=== PATIENT | female | born 1995 | race American Indian/Alaskan Native ===

== ENCOUNTER 2018-05-04 14:29 | Outpatient (CLI) | payer MEDICAID ==
--- NOTE | 2018-05-04 19:58 | Event Note ---
Date: 05/04/18 no change in SVE after ambulating x 1 hour, SVE by my exam /-2, IBOW and no bleeding/spotting/leaking. Offered patient PO vistaril for rest, patient declined. plan to d/c home with labor precautions after reactive tracing. triage nurse aware.
[2018-05-06 08:50] VITALS: BP 105/67
== END 2018-05-04 23:41 | disposition home or self-care (01) ==
LOC: TRG 14:29 → LD 14:30 → TRG 23:41
PROVIDERS: ATTEND Obstetrics & Gynecology
DX: O47.1 False labor at or after 37 completed weeks of gestation (principal); Z3A.38 38 weeks gestation of pregnancy; Z91.040 Latex allergy status; Z91.013 Allergy to seafood
CPT/HCPCS: 59025

== ENCOUNTER 2018-05-05 18:02 | Inpatient (IN) | payer MEDICAID ==
[2018-05-05] MEDS ORDERED: LACTATED RINGERS 1,000 ML ONE (19:23)
[2018-05-05] MEDS ORDERED: PHENERGAN PO PRN (19:37)
[2018-05-05] MEDS ORDERED: MINERAL OIL PO PRN (19:37)
[2018-05-05] MEDS ORDERED: XYLOCAINE 2% INFILTRATI ONE (19:37)
[2018-05-05] MEDS ORDERED: STADOL IV PRN (19:37)
[2018-05-05] MEDS ORDERED: BRETHINE IVP PRN (19:37)
--- NOTE | 2018-05-05 19:53 | History and Physical Report ---
History of Present Illness Date of examination: 05/05/18 Date of admission: 05/05/18 18:02 History of present illness: Patient presented to labor and delivery from the office when she was seen with advanced dilatation and no being admitted for antibiotic prophylaxis due to positive group B streptococcus. Patient's cervix was 5-6 cm in office with irregular contractions Past History Past Medical History: no pertinent history Past Surgical History: no surgical history - Obstetrical History Expected Date of Delivery: 05/16/18 Actual Gestation: 38 Week(s) 3 Day(s) : 2 Para: 1 Hx # Term Pregnancies: 1 Number of Pregnancies: 0 Spontaneous Abortions: 0 Induced : 0 Number of Living Children: 1 Medications and Allergies Allergies Allergy/AdvReac Type Severity Reaction Status Date / Time latex AdvReac Swelling Verified 05/04/18 15:05 shellfish derived AdvReac Anaphylaxis Verified 05/04/18 15:05 Home Medications Medication Instructions Recorded Confirmed Last Taken Type Ferrous Sulfate [Feosol 325 MG tab] 1 tab PO QDAY 05/04/18 05/05/18 2 Weeks Ago History ~04/21/18 Pnv,Calcium 72/Iron/Folic Acid 1 tab PO QDAY 05/04/18 05/05/18 05/03/18 11:00 History [Pnv Plus Multivit Tab] Active Meds: Active Medications Butorphanol Tartrate (Stadol) 2 mg IV Q2H PRN PRN Reason: Pain , Severe (7-10) Ephedrine Sulfate (Ephedrine Sulfate) 10 mg IV Q2M PRN PRN Reason: Hypotension Ampicillin Sodium (Ampicillin/Ns 1 Gm/50 Ml) 1 gm in 50 mls @ 100 mls/hr IV Q4HR IMAN; Protocol Lactated Ringer's (Lactated Ringers) 1,000 mls @ 125 mls/hr IV DIRECT IMAN Oxytocin/Sodium Chloride (Pitocin/Ns 20 Unit/1000ml Drip) 20 units in 1,000 mls @ 125 mls/hr IV DIRECT IMAN Lidocaine (Xylocaine 2%) 20 ml INFILTRATI ONCE ONE Stop: 05/05/18 19:38 Mineral Oil (Mineral Oil) 30 ml PO QHS PRN PRN Reason: Constipation Promethazine HCl (Phenergan) 25 mg PO Q6H PRN PRN Reason: Nausea And Vomiting Terbutaline Sulfate (Brethine) 0.25 mg IVP ONCE PRN PRN Reason: Hyperstimulation/Hypertonicity - Vital Signs Vital signs: Vital Signs Pulse BP 87 118/73 05/05/18 19:36 05/05/18 19:36 Temp Pulse Resp BP Pulse Ox 87 118/73 05/05/18 19:36 05/05/18 19:36 - Physical Exam Breasts: Positive: deferred Cardiovascular: Regular rate Abdomen: Positive: normal appearance, soft Cervix: Positive: other (Per RN) Uterus: Positive: enlarged Anus/Rectum: Positive: normal perianal skin Extremities: Positive: edema Results Result Diagrams: 05/05/18 20:15 All other labs normal. Assessment and Plan - Patient Problems (1) 38 weeks gestation of Current Visit: Yes Status: Acute (2) Carrier of group B Streptococcus Current Visit: Yes Status: Acute Plan to address problem: Antibiotic prophylaxis given (3) Abnormal dilatation of cervix before onset of labor Current Visit: Yes Status: Acute Plan to address problem: We'll admit for expectant management and possible augmentation of labor.
[2018-05-05] MEDS ORDERED: POLYCILLIN/NS 2 GM/100 ML 2 GM/100 ML BAG IV SCH (20:00)
[2018-05-05] MEDS ORDERED: PITOCin/NS 20 UNIT/1000ML DRIP 20 UNITS/1,000 ML BAG IV SCH (20:00)
[2018-05-05] MEDS: LACTATED RINGERS 1,000 ML IV SCH (20:30)
[2018-05-05 20:53] LABS: Hemoglobin 10.3 gm/dl (10.1-14.3); Mean Corpuscular HGB Conc 32 % (30-34); Mean Corpuscular Hemoglobin 25 pg (28-32); Mean Corpuscular Volume 78 fl (79-97); Platelet Count 216 K/mm3 (140-440); Red Blood Count 4.11 M/mm3 (3.65-5.03); Red Cell Distribution Width 18.5 % (13.2-15.2)
[2018-05-06] MEDS: AMPICILLIN/NS 1 GM/50 ML 1 GM/50 ML BAG IV SCH ×4 (00:19→12:58)
[2018-05-06] MEDS ORDERED: PITOCin/NS 30 UNIT/500ML 30 UNITS/500 ML BAG IV SCH (02:00)
[2018-05-06] MEDS: LACTATED RINGERS 1,000 ML IV SCH (06:17)
--- NOTE | 2018-05-06 08:13 | Progress Note ---
Assessment and Plan patient reports ctx becoming stronger, will continue pitocin titration for adequate labor. She declines epidural. continue IV antibiotics for + GBS. - Patient Problems (1) 38 weeks gestation of Current Visit: Yes Status: Acute (2) Abnormal dilatation of cervix before onset of labor Current Visit: Yes Status: Acute (3) Carrier of group B Streptococcus Current Visit: Yes Status: Acute Subjective - Subjective Date of service: 05/06/18 Principal diagnosis: IUP @ 38+4 weeks, advanced dilitation Patient reports: contractions, no loss of fluid, no vaginal bleeding Objective - Vital Signs Vital Signs: Vital Signs - 12hr 05/05/18 05/05/18 05/06/18 23:51 23:55 02:39 Temperature 98.9 F 98.5 F Pulse Rate 74 Respiratory 20 18 Rate Blood Pressure 114/61 - Exam Breasts: normal Cardiovascular: Regular rate Lungs: Clear to auscultation, Normal air movement Abdomen: Present: normal appearance, soft Vulva: both: normal Uterus: Present: normal FHR: auscultation normal, category 1 Uterine Contraction Monitor Mode: External Uterine Contraction Pattern: Irregular Uterine Tone Measurement Phase: Contraction Uterine Contraction Intensity: Mild Extremities: normal Deep Tendon Reflex Grade: Normal +2 - Labs Labs: Abnormal Labs 05/05/18 20:15 MCV 78 L MCH 25 L RDW 18.5 H Laboratory Results - last 24 hr 05/05/18 05/05/18 20:15 20:21 WBC 6.8 RBC 4.11 Hgb 10.3 Hct 32.0 MCV 78 L MCH 25 L MCHC 32 RDW 18.5 H Plt Count 216 Blood Type AB POSITIVE Antibody Screen Negative
--- NOTE | 2018-05-06 11:52 | Progress Note ---
Assessment and Plan Frequent mild ctx noted but no cervical change. Patient denies feeling pain. IUPC flushed by RN, pitocin cut in half and will start increasing again for adequate labor. Advised pt to try different position - LLP and RLP to help facilitate cardinal movements. - Patient Problems (1) 38 weeks gestation of Current Visit: Yes Status: Acute (2) Abnormal dilatation of cervix before onset of labor Current Visit: Yes Status: Acute (3) Carrier of group B Streptococcus Current Visit: Yes Status: Acute Subjective - Subjective Date of service: 05/06/18 Principal diagnosis: IUP @ 38+4 weeks, advanced dilitation, AROM Patient reports: loss of fluid, movement normal, contractions, no vaginal bleeding Objective - Vital Signs Vital Signs: Vital Signs - 12hr 05/05/18 05/05/18 05/06/18 23:51 23:55 02:39 Temperature 98.9 F 98.5 F Pulse Rate 74 Respiratory 20 18 Rate Blood Pressure 114/61 05/06/18 05/06/18 05/06/18 09:11 09:42 10:21 Temperature 98.1 F Pulse Rate 98 H 85 Respiratory 18 Rate Blood Pressure 101/64 109/68 05/06/18 05/06/18 10:51 11:21 Temperature Pulse Rate 88 92 H Respiratory Rate Blood Pressure 111/76 103/70 - Exam Breasts: normal Cardiovascular: Regular rate Lungs: Clear to auscultation, Normal air movement Abdomen: Present: normal appearance, soft Vulva: both: normal Uterus: Present: normal FHR: auscultation normal, category 1 Uterine Contraction Monitor Mode: Internal Cervical Dilatation: 6 Cervical Effacement Percentage: 70 station: 0 Uterine Contraction Frequency (min): 1-2 Uterine Contraction Duration: 50 Uterine Contraction Pattern: Regular Uterine Tone Measurement Phase: Contraction Uterine Contraction Intensity: Mild Extremities: normal Deep Tendon Reflex Grade: Normal +2 - Labs Labs: Abnormal Labs 05/05/18 20:15 MCV 78 L MCH 25 L RDW 18.5 H Laboratory Results - last 24 hr 05/05/18 05/05/18 05/05/18 20:15 20:15 20:21 WBC 6.8 RBC 4.11 Hgb 10.3 Hct 32.0 MCV 78 L MCH 25 L MCHC 32 RDW 18.5 H Plt Count 216 RPR Nonreactive Blood Type AB POSITIVE Antibody Screen Negative
--- NOTE | 2018-05-06 14:15 | Procedure Note ---
OB Delivery Note - Delivery Date of Delivery: 05/06/18 Surgeon: JUNIOR MARCUS Estimated blood loss: 300cc - Vaginal Delivery presentation: vertex Delivery position: OA Intrapartum events: none Delivery induction: oxytocin Delivery augmentation: rupture of membranes, pitocin Delivery monitor: external FHT, external uterine, internal uterine Route of delivery: Delivery placenta: spontaneous Delivery cord: nuchal cord (times one easily reduced) Episiotomy: none Delivery laceration: 1st degree (just small periruethral and perineal lacerations noted) Delivery repair: other (all lacerations were hemotatic so no repair done at this time) Anesthesia: intravenous Delivery comments: Delivery as above that was not complicated. Ant shoulder delivered w/o difficulty. Nuchal cord x1 note and easily reduced. Rest of delivered w/ o difficulty. Infant placed on maternal abdomen. Cord clamped x 2 and cut x 1. Placenta delivered intact. All lacerations noted to be hemostatic and no repairs done. Mother and infant stable in ldr. - A at 1 minute: 8 (7lbs 12 oz) at 5 minutes: 9 Gender: Male
[2018-05-06] MEDS ORDERED: MILK OF MAGNESIA PO PRN (14:16)
[2018-05-06] MEDS ORDERED: DULCOLAX PR PRN (14:16)
[2018-05-06] MEDS ORDERED: TUCKS PAD TP PRN (14:16)
[2018-05-06] MEDS ORDERED: TYLENOL PO PRN (14:16)
[2018-05-06] MEDS ORDERED: ZOFRAN IV PRN (14:16)
[2018-05-06] MEDS ORDERED: BENADRYL PO PRN (14:16)
[2018-05-06] MEDS ORDERED: LANSINOH TP PRN (14:16)
[2018-05-06] MEDS ORDERED: TORADOL IV ONE (14:40)
[2018-05-06] MEDS ORDERED: TORADOL ONE (14:47)
[2018-05-06] MEDS ORDERED: SODIUM CHLORIDE FLUSH SYRINGE 10 ML IV SCH (15:00)
[2018-05-06] MEDS: MOTRIN PO SCH ×2 (18:26→23:22)
[2018-05-06] MEDS: COLACE PO SCH (23:22)
[2018-05-07 04:26] LABS: Hematocrit 28.7 % (30.3-42.9); Hemoglobin 9.3 gm/dl (10.1-14.3)
[2018-05-07] MEDS: MOTRIN PO SCH ×3 (06:11→18:18)
[2018-05-07] MEDS: COLACE PO SCH (10:48)
--- NOTE | 2018-05-07 11:39 | Discharge Summary ---
Providers - Providers Date of Admission: 05/05/18 18:02 Date of discharge: 05/07/18 Attending physician: IRAIDA ANTUNEZ Primary care physician: IRAIDA ANTUNEZ Hospitalization Reason for admission: active labor Delivery: Other procedures: none complications: none Discharge diagnosis: IUP at term delivered baby: male Hospital course: Patient resting in bed, no complaints, minimal bleeding, desires d/c home. Abd soft, fundus firm, exts no edema, NT Condition at discharge: Good Disposition: DC-01 TO HOME OR SELFCARE Plan - Provider Discharge Summary Activity: routine, no sex for 6 weeks, no heavy lifting 4 weeks, no strenuous exercise Diet: routine Instructions: routine Additional instructions: [] Smoking cessation referral if applicable(refer to patient education folder for contact #) [] Refer to [facility] Booklet Call your doctor immediately for: * Fever > 100.5 * Heavy vaginal bleeding ( >1 pad per hour) * Severe persistent headache * Shortness of breath * Reddened, hot, painful area to leg or breast * Drainage or odor from incision. * Keep incision clean and dry at all times and follow doctor's instructions regarding bathing/showering - Follow up plan Follow up: IRAIDA ANTUNEZ MD [Primary Care Provider] - 7 Days
[2018-05-07] MEDS ORDERED: BOOSTRIX IM ONE (12:00)
[2018-05-07 18:14] VITALS: BP 102/71
== END 2018-05-07 20:30 | disposition home or self-care (01) | DRG 775 ==
LOC: LD 18:02 → OB 05-06 16:08
PROVIDERS: ADMIT Obstetrics & Gynecology; ATTEND Obstetrics & Gynecology
PROC: 10E0XZZ Delivery of Products of Conception, External Approach (ICD-10-PCS; principal; 2018-05-06)
PROC: 3E033VJ Introduction of Other Hormone into Peripheral Vein, Percutaneous Approach (ICD-10-PCS; 2018-05-06)
PROC: 10H07YZ Insertion of Other Device into Products of Conception, Via Natural or Artificial Opening (ICD-10-PCS; 2018-05-06)
PROC: 10907ZC Drainage of Amniotic Fluid, Therapeutic from Products of Conception, Via Natural or Artificial Opening (ICD-10-PCS; 2018-05-06)
DX: O99.824 Streptococcus B carrier state complicating childbirth (principal); O62.0 Primary inadequate contractions; O69.81X0 Labor and delivery complicated by cord around neck, without compression, not applicable or unspecified; O70.0 First degree perineal laceration during delivery; Z37.0 Single live birth; Z3A.38 38 weeks gestation of pregnancy; Z91.040 Latex allergy status; Z91.013 Allergy to seafood
CPT/HCPCS: 36415; 85014; 85018; 85027; 86592; 86850; 86900; 86901; 88307; 90471; 90715; J0290; J0595; J1885; J2590; J7120